=== PATIENT | male | born 1995 | race Caucasian/White ===

== ENCOUNTER 2024-06-24 03:10 | Emergency (ER) | payer BC ==
[2024-06-24] MEDS ORDERED: Ketorolac 15 MG/ML SDV IM ONE (03:35)
[2024-06-24] MEDS: Ketorolac 30 MG/ML SDV IM ONE (03:45)
== END 2024-06-24 03:56 | disposition home or self-care (01) ==
LOC: VM.ED 03:10
DX: R07.81 Pleurodynia (principal); Y04.0XXA Assault by unarmed brawl or fight, initial encounter
CPT/HCPCS: 71100-RT; 96372; 99283; 99284; J1885